=== PATIENT | female | born 2000 | race Caucasian/White ===

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

== ENCOUNTER 2019-04-21 17:14 | Emergency (ER) | payer MEDICAID ==
[2019-04-21 18:48] VITALS: BP 117/63
== END 2019-04-21 18:48 | disposition left against medical advice (07) ==
LOC: ER 17:14
DX: Z53.21 Procedure and treatment not carried out due to patient leaving prior to being seen by health care provider (principal)

== ENCOUNTER 2019-05-28 21:21 | Emergency (ER) | payer MEDICAID ==
[2019-05-28 21:28] VITALS: BP 119/63
--- NOTE | 2019-05-28 22:13 | ER Document Report ---
ED Medical Screen (RME) - General Chief Complaint: Rib Pain Stated Complaint: RIGHT RIB PAIN Time Seen by Provider: 05/28/19 22:06 Primary Care Provider: LUCILLE DANIEL MD [Primary Care Provider] - Follow up as needed Mode of Arrival: Medic Information source: Patient Notes: 18-year-old female relatively healthy presents emergency department via EMS with reports that approximately 2 hours ago she ate some pizza, went outside to have a cigarette when the right side of her chest and midsternal area of her chest started hurting. She reports her right arm started hurting. Denies trauma. Reports she felt nauseated. Denies fever vomiting. Denies history of trauma to the chest. Reports she does smoke cigarettes, has vaped marijuana but none recently. Unsure of family history. Patient chest wall tender to touch. Right-sided rib tender to touch. Respiratory rate even unlabored. I have greeted and performed a rapid initial assessment of this patient. A comprehensive ED assessment and evaluation of the patient, analysis of test results and completion of the medical decision making process will be conducted by additional ED providers. TRAVEL OUTSIDE OF THE [place] IN LAST 30 DAYS: No - Related Data Allergies/Adverse Reactions: No Known Allergies Allergy (Verified 04/21/19 18:48) Past Medical History - Past Medical History Cardiac Medical History: Reports: Hx Hypertension - 1st baby - GHTN Denies: Hx Coronary Artery Disease, Hx Heart Attack Pulmonary Medical History: Denies: Hx Asthma, Hx Bronchitis, Hx COPD, Hx Pneumonia Neurological Medical History: Denies: Hx Cerebrovascular Accident, Hx Seizures Renal/ Medical History: Reports: Hx Ovarian Cysts - Cysts on ovaries after first . Denies: Hx Kidney Stones, Hx Peritoneal Dialysis, Hx Pelvic Inflammatory Disease Malignancy Medical History: Denies: Hx Breast Cancer, Hx Cervical Cancer, Hx Ovarian Cancer GI Medical History: Reports: Hx Gastroesophageal Reflux Disease Musculoskeltal Medical History: Denies Hx Arthritis Past Surgical History: Reports: Hx Orthopedic Surgery - right leg - Immunizations Immunizations up to date: Yes Hx Diphtheria, Pertussis, Tetanus Vaccination: Yes Physical Exam - Vital signs Vitals: Temp Pulse Resp BP Pulse Ox 99.4 F 92 H 22 119/63 98 05/28/19 21:27 05/28/19 21:27 05/28/19 21:27 05/28/19 21:27 05/28/19 21:27 Course - Vital Signs Vital signs: Temp Pulse Resp BP Pulse Ox 99.4 F 92 H 22 119/63 98 05/28/19 21:27 05/28/19 21:27 05/28/19 21:27 05/28/19 21:27 05/28/19 21:27 Doctor's Discharge - Discharge Referrals: LUCILLE DANIEL MD [Primary Care Provider] - Follow up as needed
--- NOTE | 2019-05-28 22:16 | ER Document Report ---
HPI - HPI Patient complains to provider of: chest pain, rib pain Time Seen by Provider: 05/28/19 22:06 Onset: Just prior to arrival Onset/Duration: Sudden Quality of pain: Achy Context: 18-year-old female relatively healthy presents emergency department via EMS with reports that approximately 2 hours ago she ate some pizza, went outside to have a cigarette when the right side of her chest and midsternal area of her chest started hurting. She reports her right arm started hurting. Denies trauma. Reports she felt nauseated. Denies fever vomiting. Denies history of trauma to the chest. Reports she does smoke cigarettes, has vaped marijuana but none recently. Unsure of family history. Patient chest wall tender to touch. Right-sided rib tender to touch. Respiratory rate even unlabored. Associated Symptoms: Nausea Exacerbated by: Denies Relieved by: Denies Similar symptoms previously: No Recently seen / treated by doctor: No - REPRODUCTIVE Reproductive: DENIES: : Past Medical History - General Information source: Patient - Social History Smoking Status: Current Every Day Smoker Cigarette use (# per day): Yes Frequency of alcohol use: None Drug Abuse: Marijuana Family History: DM - grandmother, Malignancy - breast cancer Patient has suicidal ideation: No Patient has homicidal ideation: No - Past Medical History Cardiac Medical History: Reports: Hx Hypertension - 1st baby - GHTN Denies: Hx Coronary Artery Disease, Hx Heart Attack Pulmonary Medical History: Denies: Hx Asthma, Hx Bronchitis, Hx COPD, Hx Pneumonia Neurological Medical History: Denies: Hx Cerebrovascular Accident, Hx Seizures Renal/ Medical History: Reports: Hx Ovarian Cysts - Cysts on ovaries after first . Denies: Hx Kidney Stones, Hx Peritoneal Dialysis, Hx Pelvic Inflammatory Disease Malignancy Medical History: Denies: Hx Breast Cancer, Hx Cervical Cancer, Hx Ovarian Cancer GI Medical History: Reports: Hx Gastroesophageal Reflux Disease Musculoskeletal Medical History: Denies Hx Arthritis Past Surgical History: Reports: Hx Cholecystectomy, Hx Orthopedic Surgery - right leg - Immunizations Immunizations up to date: Yes Hx Diphtheria, Pertussis, Tetanus Vaccination: Yes Vertical Provider Document - CONSTITUTIONAL Agree With Documented VS: Yes Exam Limitations: No Limitations General Appearance: WD/WN, No Apparent Distress - INFECTION CONTROL TRAVEL OUTSIDE OF THE [place] IN LAST 30 DAYS: No - HEENT HEENT: Atraumatic, Normocephalic. negative: Conjuctival Injection - NECK Neck: Normal Inspection, Supple. negative: Lymphadenopathy-Left, Lymphadenopathy-Right - RESPIRATORY Respiratory: Breath Sounds Normal, No Respiratory Distress, Other - chest wall midsternum ttp, no erythema, no swelling, no warmth, respiratory rate even unlabored, right lateral ribs tender to palpate - CARDIOVASCULAR Cardiovascular: Regular Rate, Regular Rhythm - GI/ABDOMEN Gastrointestinal: Abdomen Soft, Abdomen Non-Tender - MUSCULOSKELETAL/EXTREMETIES Musculoskeletal/Extremeties: JULIANNE WILSON - NEURO Level of Consciousness: Awake, Alert, Appropriate Motor/Sensory: No Motor Deficit - DERM Integumentary: Warm, Dry Course - Re-evaluation Re-evalutation: 05/28/19 23:47 Ribs w/Chest X-Ray 05/28/19 22:10 IMPRESSION: 1. No right rib fracture identified.. 05/28/19 23:55 X-ray negative for acute fracture. EKG sinus rhythm no ST elevation or T wave inversion. I went to discuss x-ray, EKG and discharge instructions with patient but she was not in the room. - Vital Signs Vital signs: Temp Pulse Resp BP Pulse Ox 99.4 F 92 H 22 119/63 98 05/28/19 21:27 05/28/19 21:27 05/28/19 21:27 05/28/19 21:27 05/28/19 21:27 - Diagnostic Test Radiology reviewed: Image reviewed, Reports reviewed - EKG Interpretation by Nd EKG shows normal: Sinus rhythm Rate: Normal Additional EKG results interpreted by me: 05/28/19 23:[address] elevation no T wave inversion Discharge - Discharge Clinical Impression: Chest wall pain, Rib pain on right side Condition: Stable Disposition: HOME, SELF-CARE Instructions: Chest Wall Pain ([facility]), Chest Pain of Unclear Cause ([facility]) Additional Instructions: *You have been evaluated for chest and rib pain *Your rib x-ray was negative for acute injury *Cough and deep breathe at least once an hour *Take ibuprofen as indicated *Follow-up with your primary care provider for recheck within 1 week *Return to emergency department for worsening symptoms concerns difficulty breathing Referrals: LUCILLE DANIEL MD [ACTIVE STAFF] - Follow up as needed
--- NOTE | 2019-05-28 23:19 | RADIOLOGY REPORT (SQ) ---
EXAM DESCRIPTION: XR RIBS UNILATERAL WITH CHEST COMPLETED DATE/TME: 05/28/2019 22:10 CLINICAL HISTORY: rib pain, cp COMPARISON: None. FINDINGS: Single frontal view of the chest and 2 views of the right ribs. Cardiomediastinal silhouette: Normal size and contour. Lungs: No consolidation, pneumothorax, or pleural effusion. Upper abdomen: Prior cholecystectomy. Bones: No acute osseous abnormality. IMPRESSION: 1. No right rib fracture identified..
--- NOTE | 2019-05-29 13:35 | EKG REPORT ---
SEVERITY:- BORDERLINE ECG - SINUS RHYTHM BORDERLINE T ABNORMALITIES, ANTERIOR LEADS : Confirmed by: Leodan Marquez MD 29-May-2019 13:34:09
== END 2019-05-29 00:42 | disposition home or self-care (01) ==
LOC: ER 21:21
DX: R07.81 Pleurodynia (principal); R07.89 Other chest pain; M79.602 Pain in left arm; R11.0 Nausea; F12.10 Cannabis abuse, uncomplicated; F17.210 Nicotine dependence, cigarettes, uncomplicated
CPT/HCPCS: 93005; 93010; 99284

== ENCOUNTER 2019-07-29 19:01 | Emergency (ER) | payer MEDICAID ==
[2019-07-29] MEDS ORDERED: ONDANSETRON HCL INJ/PF 4 MG/2 ML SDV IV ONE (20:07)
[2019-07-29] MEDS ORDERED: METOCLOPRAMIDE HCL ORAL SOLN 10 MG/10 ML UDCUP PO ONE (20:08)
[2019-07-29] MEDS ORDERED: MAG HYDROX/AL HYDROX/SIMETH SUSP 30 ML UDCUP PO ONE (20:08)
[2019-07-29] MEDS ORDERED: LIDOCAINE 2% VISCOUS SOLN 15 ML UDCUP PO ONE (20:08)
[2019-07-29 20:20] LABS: ABSOLUTE BASOPHILS # (AUTO) 0.1 10^3/uL (0.0-0.2); ABSOLUTE EOSINOPHILS # (AUTO) 0.4 10^3/uL (0.0-0.6); ABSOLUTE LYMPHOCYTES (AUTO) 3.7 10^3/uL (0.5-4.7); ABSOLUTE MONOCYTES (AUTO) 0.7 10^3/uL (0.1-1.4); ABSOLUTE NEUT (AUTO) 11.6 10^3/uL (1.7-8.2); BASOPHILS % (AUTO) 0.4 % (0-2); EOSINOPHILS % (AUTO) 2.4 % (0-6); HEMATOCRIT 44.7 % (36.0-47.0); HEMOGLOBIN 15.3 g/dL (12.0-15.5); LYMPHOCYTES % (AUTO) 22.3 % (13-45); MEAN CORPUSCULAR HEMOGLOBIN 30.2 pg (27.0-33.4); MEAN CORPUSCULAR HGB CONC 34.3 g/dL (32.0-36.0); MEAN CORPUSCULAR VOLUME 88 fl (80-97); MONOCYTES % (AUTO) 4.5 % (3-13); PLATELET COUNT 219 10^3/uL (150-450); RED BLOOD COUNT 5.08 10^6/uL (3.72-5.28); RED CELL DISTRIBUTION WIDTH 13.4 % (11.5-14.0); SEGMENTED NEUTROPHILS % (AUTO) 70.4 % (42-78); TOTAL CELLS COUNTED % (AUTO) 100 %; WHITE BLOOD COUNT 16.5 10^3/uL (4.0-10.5)
[2019-07-29 20:47] LABS: ALBUMIN 3.9 g/dL (3.7-5.6); ALKALINE PHOSPHATASE 63 U/L (50-135); ASPARTATE AMINO TRANSFERASE 21 U/L (5-30); BILIRUBIN,TOTAL 0.4 mg/dL (0.2-1.3); BLOOD UREA NITROGEN 9 mg/dL (7-20); CALCIUM 9.1 mg/dL (8.4-10.2); CHLORIDE 106 mmol/L (98-107); GLUCOSE 98 mg/dL (75-110); POTASSIUM 4.1 mmol/L (3.6-5.0); TOTAL PROTEIN 6.3 g/dL (6.3-8.2)
[2019-07-29 20:52] LABS: CARBON DIOXIDE 26 mmol/L (22-30)
[2019-07-29 20:53] LABS: ANION GAP 6 (5-19)
--- NOTE | 2019-07-29 21:04 | ER Document Report ---
ED GI/ - General Chief Complaint: Abdominal Pain Stated Complaint: ABDOMINAL PAIN Time Seen by Provider: 07/29/19 19:51 Mode of Arrival: Ambulatory Information source: Patient Notes: This 18-year-old female presents to the emergency department with a 2-day history of abdominal pain with vomiting. Patient states that she donated plasma over the past 2 days. Last evening she developed vomiting episodes x2 with burning epigastric pain, she awoke again at 3 AM with second episode which las emily approximately 30 minutes. She had taken Tylenol without relief. She also tried Excedrin. Today she was doing well until 4 PM when she ate dinner and approximately 30 minutes later began having sharp abdominal pain and vomiting x2. She continues to be nauseated and complains of epigastric abdominal pain which she rates 6/10. She denies diarrhea constipation or change of appetite. She is status post cholecystectomy approximately 1 year ago. TRAVEL OUTSIDE OF THE [place] IN LAST 30 DAYS: No - Related Data Allergies/Adverse Reactions: No Known Allergies Allergy (Verified 04/21/19 18:48) Past Medical History - Social History Smoking Status: Current Every Day Smoker Chew tobacco use (# tins/day): No Frequency of alcohol use: Occasional Drug Abuse: None Family History: DM - grandmother, Malignancy - breast cancer Patient has suicidal ideation: No Patient has homicidal ideation: No - Past Medical History Cardiac Medical History: Reports: Hx Hypertension - 1st baby - GHTN Denies: Hx Coronary Artery Disease, Hx Heart Attack Pulmonary Medical History: Denies: Hx Asthma, Hx Bronchitis, Hx COPD, Hx Pneumonia Neurological Medical History: Denies: Hx Cerebrovascular Accident, Hx Seizures Renal/ Medical History: Reports: Hx Ovarian Cysts - Cysts on ovaries after first . Denies: Hx Kidney Stones, Hx Peritoneal Dialysis, Hx Pelvic Inflammatory Disease Malignancy Medical History: Denies: Hx Breast Cancer, Hx Cervical Cancer, Hx Ovarian Cancer GI Medical History: Reports: Hx Gastroesophageal Reflux Disease Musculoskeletal Medical History: Denies Hx Arthritis Past Surgical History: Reports: Hx Cholecystectomy, Hx Orthopedic Surgery - right leg - Immunizations Immunizations up to date: Yes Hx Diphtheria, Pertussis, Tetanus Vaccination: Yes Review of Systems - Review of Systems Notes: Constitutional: Negative for fever. HENT: Negative for sore throat. Eyes: Negative for visual changes. Cardiovascular: Negative for chest pain. Respiratory: Negative for shortness of breath. Gastrointestinal: + Abdominal pain, + nausea and vomiting, no diarrhea. Genitourinary: Negative for dysuria. Musculoskeletal: Negative for back pain. Skin: Negative for rash. Neurological: Negative for headaches, weakness or numbness. 10 point ROS negative except as marked above and in HPI. Physical Exam - Vital signs Vitals: Temp Pulse Resp Pulse Ox 98.3 F 123 H 18 97 07/29/19 19:06 07/29/19 19:06 07/29/19 19:06 07/29/19 19:06 - Notes Notes: PHYSICAL EXAMINATION: Physical Exam: General: Well-nourished well-developed 18-year-old female in no acute distress HEENT: NC/AT, pupils equal round and reactive to light, MM moist,nares clear, oropharynx clear, airway patent Neck: supple, no adenopathy, no masses. Good range of motion Lungs: clear, no wheezing, no rales no rhonchi CVS: Regular rate and rhythm no murmur gallop or rub Abdomen: Soft, active, + tenderness gastric area, no guarding, no rebound, no masses, no hepatosplenomegaly Ext: No edema, clubbing or cyanosis. Neuro: Alert and responsive, moving all 4 extremities on command, cranial nerves intact, no focal findings Skin: Intact no open lesions, no rash PSYCH: Normal mood, normal affect. Course - Re-evaluation Re-evalutation: 07/29/19 21:07 Patient received Zofran IV and a GI cocktail and states that her symptoms had resolved. Symptoms were compatible with acid reflux and nausea vomiting. She is given a prescription for Zofran, omeprazole, and encouraged to use a bland di et for first 24 hours while the medication is started. She can follow-up with her primary care doctor as needed and the patient acknowledges understanding of this plan and is agreeable. - Vital Signs Vital signs: Temp Pulse Resp BP Pulse Ox 98.3 F 121 H 18 106/87 H 97 07/29/19 19:06 07/29/19 19:10 07/29/19 19:06 07/29/19 19:10 07/29/19 19:06 - Laboratory Result Diagrams: 07/29/19 19:42 07/29/19 19:42 Laboratory results interpreted by me: 07/29/19 19:42 WBC 16.5 H Absolute Neuts (auto) 11.6 H I have reviewed laboratory data and used this information for the treatment decisions regarding the patient. Discharge - Discharge Clinical Impression: Epigastric pain Acid reflux disease Qualifiers: Esophagitis presence: with esophagitis Qualified Code(s): K21.0 - Gastro- esophageal reflux disease with esophagitis Nausea and vomiting Qualifiers: Vomiting type: unspecified Vomiting Intractability: unspecified Qualified Code(s): R11.2 - Nausea with vomiting, unspecified Condition: Good Disposition: HOME, SELF-CARE Instructions: Abdominal Pain ([facility]), Antinausea Medication ([facility]), Vomiting ([facility]) Additional Instructions: You are diagnosed with acid reflux disease, nausea vomiting in the emergency department tonight. Treated with Zofran and a GI cocktail with some improvement. It was suggested that you begin Zofran for nausea every 4-6 hours, you may also begin a daily dose of omeprazole 40 mg daily for acid suppression. Please use a bland diet avoiding fried foods, greasy foods, spicy foods, meats for the first 24 hours. You may eat light diet with soup, crackers, toast, applesauce for the first day. You may advance the diet as tolerated. HOME CARE INSTRUCTIONS & INFORMATION: Thank you for choosing us for your medical needs. We hope you're satisfied with the care you received. After you leave, you must properly care for your problem and, at the same time, observe its progress. Any condition can change. Some illnesses can change rapidly over hours or days. If your condition worsens, return to the Emergency Department or see your physician promptly. ABOUT YOUR X-RAYS AND EKG'S: If you had an EKG or X-rays taken, they have been read by the Emergency Physician. The X-rays and EKG's will also be read by a Radiologist or Window Maker within 24 hours. If discrepancies are noted, you will be notified by telephone. Please be certain the ED has a correct telephone number & address where you can be reached. Also, realize that some fractures or abnormalities do not show up on initial X-rays. If your symptoms continue, see your physician. ABOUT YOUR LABORATORY TEST: If you had laboratory tests, the results have been reviewed by the Emergency Physician. Some test results (for example cultures) may not be available for several days. You will be contacted if any test result shows you need additional treatment. Please be certain the ED has a correct telephone number and address where you can be reached. ABOUT YOUR MEDICATIONS: You will receive instructions on how to take your medicine on the prescription label you receive. Additional information may be provided by the Pharmacy. If you have questions afterwards, call the ED for clarification or further instructions. Some prescribed medications may cause drowsiness. Do not perform tasks such as driving a car or operating machinery without consulting your Pharmacist. If you feel you need a refill of pain medication, your condition will need re-evaluation. Please do not call for a refill of any medication. ABOUT YOUR SIGNATURE: Signature of this document acknowledges to followin. Understanding that you received emergency treatment and that you may be released before al medical problems are known or treated. Please be certain the ED has a correct phone number & address where you can be reached. 2. Acknowledgement that you will arrange for follow-up care as recommended. 3. Authorization for the Emergency Physician to provide information to your follow-up Physician in order to maximize your care. AT ANY TIME, IF YOUR SYMPTOMS CHANGE SIGNIFICANTLY OR WORSEN OR YOU DEVELOP NEW SYMPTOMS, RETURN TO THE EMERGENCY DEPARTMENT IMMEDIATELY FOR RE-EVALUATION. OUR GOAL IS TO PROVIDE EXCELLENT MEDICAL CARE! WE HOPE THAT WE HAVE MET YOUR EXPECTATIONS DURING YOUR EMERGENCY DEPARTMENT VISIT AND THAT YOU FEEL YOU HAVE RECEIVED EXCELLENT CARE! Prescriptions: Omeprazole 40 mg PO DAILY #30 capsule. Ondansetron [Zofran Odt 4 mg Tablet] 1 - 2 tab PO Q4H PRN #12 tab.rapdis PRN Reason: For Nausea/Vomiting
[2019-07-29 21:24] VITALS: BP 110/77
== END 2019-07-29 21:22 | disposition home or self-care (01) ==
LOC: ER 19:01
DX: K21.0 Gastro-esophageal reflux disease with esophagitis (principal); R11.2 Nausea with vomiting, unspecified; R10.13 Epigastric pain; F17.200 Nicotine dependence, unspecified, uncomplicated; Z90.49 Acquired absence of other specified parts of digestive tract
CPT/HCPCS: 99284; 96374; 36415; 83690; 85025; 80053; J3490 ×3; J2405

== ENCOUNTER 2019-12-29 21:19 | Emergency (ER) | payer MEDICAID ==
[2019-12-29 21:40] VITALS: BP 115/74
--- NOTE | 2019-12-29 21:50 | ER Document Report ---
ED Medical Screen (RME) - General Chief Complaint: Urinary Problem Stated Complaint: BACK AND RIB PAIN AND BLOOD IN URINE Time Seen by Provider: 12/29/19 21:38 Mode of Arrival: Ambulatory Information source: Patient Notes: 19-year-old female presents to ED for complaint of not feeling herself and tired no appetite fatigue with abdominal pain and back pain. She states she has been nauseated but no vomiting. She states she saw a log large glob of blood in the toilet after she urinated today. She states she went to [facility] and they did a test and it was negative. She states they started on Macrobid because of her symptoms. She states she has had 11 faint positive test at home. She states her last menstrual period was about 4 years ago. She states she is been off control for about a year but has not had any periods. She states she has had multiple ovarian cyst. She has had 2 C- sections a cholecystectomy and a surgery to her right lower leg for cyst. She states she does smoke a pack a day every couple days she drinks for beer and that she usually while she is cooking. She states she does not use any illicit drugs. She is alert oriented respirations regular nonlabored speaking in full sentences. We will get blood urine and a transvaginal ultrasound to find out why she is having the abdominal pain. I have greeted and performed a rapid initial assessment of this patient. A comprehensive ED assessment and evaluation of the patient, analysis of test results and completion of medical decision making process will be conducted by an additional ED providers. TRAVEL OUTSIDE OF THE [place] IN LAST 30 DAYS: No - Related Data Allergies/Adverse Reactions: No Known Allergies Allergy (Verified 04/21/19 18:48) Past Medical History - Social History Chew tobacco use (# tins/day): No Frequency of alcohol use: Occasional Drug Abuse: None - Past Medical History Cardiac Medical History: Reports: Hx Hypertension - 1st baby - GHTN Denies: Hx Coronary Artery Disease, Hx Heart Attack Pulmonary Medical History: Denies: Hx Asthma, Hx Bronchitis, Hx COPD, Hx Pneumonia Neurological Medical History: Denies: Hx Cerebrovascular Accident, Hx Seizures Renal/ Medical History: Reports: Hx Ovarian Cysts - Cysts on ovaries after first . Denies: Hx Kidney Stones, Hx Peritoneal Dialysis, Hx Pelvic Inflammatory Disease Malignancy Medical History: Denies: Hx Breast Cancer, Hx Cervical Cancer, Hx Ovarian Cancer GI Medical History: Reports: Hx Gastroesophageal Reflux Disease Musculoskeltal Medical History: Denies Hx Arthritis Past Surgical History: Reports: Hx Cholecystectomy, Hx Orthopedic Surgery - right leg - Immunizations Immunizations up to date: Yes Hx Diphtheria, Pertussis, Tetanus Vaccination: Yes Physical Exam - Vital signs Vitals: Temp Pulse Resp BP Pulse Ox 98.2 F 86 14 115/74 99 12/29/19 21:39 12/29/19 21:39 12/29/19 21:39 12/29/19 21:39 12/29/19 21:39 Course - Vital Signs Vital signs: Temp Pulse Resp BP Pulse Ox 98.2 F 86 14 115/74 99 12/29/19 21:42 12/29/19 21:39 12/29/19 21:39 12/29/19 21:39 12/29/19 21:39
[2019-12-29 22:20] LABS: ABSOLUTE EOSINOPHILS # (AUTO) 0.2 10^3/uL (0.0-0.6); ABSOLUTE LYMPHOCYTES (AUTO) 2.3 10^3/uL (0.5-4.7); ABSOLUTE MONOCYTES (AUTO) 0.6 10^3/uL (0.1-1.4); ABSOLUTE NEUT (AUTO) 5.8 10^3/uL (1.7-8.2); BASOPHILS % (AUTO) 0.3 % (0-2); EOSINOPHILS % (AUTO) 1.9 % (0-6); HEMATOCRIT 39.7 % (36.0-47.0); HEMOGLOBIN 13.6 g/dL (12.0-15.5); LYMPHOCYTES % (AUTO) 25.6 % (13-45); MEAN CORPUSCULAR HEMOGLOBIN 30.5 pg (27.0-33.4); MEAN CORPUSCULAR HGB CONC 34.3 g/dL (32.0-36.0); MEAN CORPUSCULAR VOLUME 89 fl (80-97); MONOCYTES % (AUTO) 7.2 % (3-13); PLATELET COUNT 173 10^3/uL (150-450); RED BLOOD COUNT 4.46 10^6/uL (3.72-5.28); RED CELL DISTRIBUTION WIDTH 12.9 % (11.5-14.0); TOTAL CELLS COUNTED % (AUTO) 100 %; WHITE BLOOD COUNT 8.9 10^3/uL (4.0-10.5)
[2019-12-29 22:27] LABS: APPEARANCE,URINE CLEAR; BILIRUBIN,URINE NEGATIVE (NEGATIVE); COLOR,URINE YELLOW; GLUCOSE, URINE NEGATIVE (NEGATIVE); KETONES,URINE NEGATIVE (NEGATIVE); LEUKOCYTE ESTERASE,URINE NEGATIVE (NEGATIVE); NITRITE,URINE NEGATIVE (NEGATIVE); PROTEIN,URINE NEGATIVE (NEGATIVE); URINE SPECIFIC GRAVITY 1.012
[2019-12-29 22:33] LABS: ALBUMIN 4.5 g/dL (3.5-5.0); ALKALINE PHOSPHATASE 70 U/L (38-126); ANION GAP 8 (5-19); ASPARTATE AMINO TRANSFERASE 18 U/L (14-36); BILIRUBIN,DIRECT 0.2 mg/dL (0.0-0.4); BILIRUBIN,TOTAL 0.4 mg/dL (0.2-1.3); BLOOD UREA NITROGEN 8 mg/dL (7-20); CALCIUM 9.4 mg/dL (8.4-10.2); CARBON DIOXIDE 28 mmol/L (22-30); CHLORIDE 101 mmol/L (98-107); GLUCOSE 84 mg/dL (75-110); POTASSIUM 4.1 mmol/L (3.6-5.0); TOTAL PROTEIN 7.3 g/dL (6.3-8.2)
--- NOTE | 2019-12-29 23:25 | RADIOLOGY REPORT (SQ) ---
EXAM DESCRIPTION: US PELVIS TRANSVAGINAL COMPLETED DATE/TME: 12/29/2019 21:50 CLINICAL HISTORY: 19 years, Female, Pelvic pain history ovarian cyst no cycle 4 years COMPARISON: Prior ultrasound dated 05/17/2018 TECHNIQUE: Axial 2-D grayscale images of the pelvis were acquired. Doppler was utilized. LIMITATIONS: None. FINDINGS: Uterus measures 7.2 x 4.6 x 3.6 cm in size. Cervix is closed, measuring 2.5 cm in length. Trace amount of free fluid is noted within the endometrial cavity. Endometrial stripe thickness measures 5 mm. A few foci of hyperechogenicity are noted about the uterine myometrium with associated comet tail artifact, nonspecific though potentially related to tiny myometrial calcifications. Right ovary measures 3.6 x 2.3 x 2.7 cm in size. It contains multiple follicles and demonstrates normal low resistance arterial waveforms/venous flow. Left ovary measures 3.7 x 2.6 x 2.2 cm in size. It also contains several small follicles and demonstrates normal low resistance arterial waveforms/venous flow. No significant free fluid is identified within the imaged pelvis. IMPRESSION: No acute sonographic abnormality. Trace free fluid within the endometrial cavity, nonspecific. Suspect tiny myometrial calcifications. copyright 2010 [email or web address]- All Rights Reserved
[2019-12-29] MEDS ORDERED: MORPHINE SULFATE 10 MG/ML INJ IV ONE (23:43)
[2019-12-29] MEDS ORDERED: ONDANSETRON HCL INJ/PF 4 MG/2 ML SDV IV ONE (23:44)
--- NOTE | 2019-12-29 23:44 | ER Document Report ---
ED GI/ - General Chief Complaint: Abdominal Pain Stated Complaint: BACK AND RIB PAIN AND BLOOD IN URINE Time Seen by Provider: 12/29/19 21:38 Primary Care Provider: MARY BUTLER NP [Primary Care Provider] - Follow up as needed Mode of Arrival: Ambulatory Information source: Patient Notes: 19-year-old female with no previous medical problems presents to the emergency room complaining of abdominal and back pain for the past week. Describes it as aching and cramping. Also complains of nausea without vomiting. States she passed a large blood clot earlier today. States she was seen at her primary care office earlier today with a negative test. Patient states she has had multiple faint positive tests at home. Was treated for UTI by her PCP earlier today. States no additional testing was done. States she is been taking ibuprofen, along with Tylenol without relief of pain. States has been able to tolerate p.o. fluids without difficulty. Currently denies any vaginal discharge or vaginal bleeding. She is a 2, para 2. TRAVEL OUTSIDE OF THE [place] IN LAST 30 DAYS: No - Related Data Allergies/Adverse Reactions: No Known Allergies Allergy (Verified 12/29/19 22:56) Past Medical History - General Information source: Patient - Social History Smoking Status: Current Every Day Smoker Chew tobacco use (# tins/day): No Frequency of alcohol use: Occasional Drug Abuse: None Family History: DM - grandmother, Malignancy - breast cancer Patient has homicidal ideation: No - Past Medical History Cardiac Medical History: Reports: Hx Hypertension - 1st baby - GHTN Denies: Hx Coronary Artery Disease, Hx Heart Attack Pulmonary Medical History: Denies: Hx Asthma, Hx Bronchitis, Hx COPD, Hx Pneumonia Neurological Medical History: Denies: Hx Cerebrovascular Accident, Hx Seizures Renal/ Medical History: Reports: Hx Ovarian Cysts - Cysts on ovaries after first . Denies: Hx Kidney Stones, Hx Peritoneal Dialysis, Hx Pelvic Inflammatory Disease Malignancy Medical History: Denies: Hx Breast Cancer, Hx Cervical Cancer, Hx Ovarian Cancer GI Medical History: Reports: Hx Gastroesophageal Reflux Disease Musculoskeletal Medical History: Denies Hx Arthritis Past Surgical History: Reports: Hx Cholecystectomy, Hx Orthopedic Surgery - right leg - Immunizations Immunizations up to date: Yes Hx Diphtheria, Pertussis, Tetanus Vaccination: Yes Review of Systems - Review of Systems Constitutional: No symptoms reported EENT: No symptoms reported Cardiovascular: No symptoms reported Respiratory: No symptoms reported Gastrointestinal: Abdominal pain, Nausea. denies: Vomiting Genitourinary: No symptoms reported Female Genitourinary: No symptoms reported Musculoskeletal: Back pain Skin: No symptoms reported Neurological/Psychological: No symptoms reported -: Yes All other systems reviewed and negative Physical Exam - Vital signs Vitals: Temp Pulse Resp BP Pulse Ox 98.2 F 86 14 115/74 99 12/29/19 21:39 12/29/19 21:39 12/29/19 21:39 12/29/19 21:39 12/29/19 21:39 - Notes Notes: VITAL SIGNS: Within normal limits. GENERAL: Mild acute distress, non-toxic appearance. HEAD: Normal with no signs of head trauma. EYES: PERRLA, EOMI, conjunctiva normal, no discharge. EARS: Hearing grossly intact. NOSE: Normal. THROAT: Oropharynx is normal. NECK: Normal range of motion, no tenderness, supple, no lymphadenopathy, No adenopathy, no JVD. CHEST: Clear breath sounds bilaterally. No wheezes, rales, or rhonchi. CARDIAC: Regular rate and rhythm. S1 and S2, without murmurs, gallops, or rubs. VASCULAR: No Edema. Peripheral pulses normal and equal in all extremities. ABDOMEN: Normal and soft with generalized tenderness on palpation, no masses or pulsatile masses. No organomegaly. Positive bowel sounds x4. Positive for right-sided CVA tenderness negative for left sided CVA tenderness. GASTROINTESTINAL: Bowel sounds normal GENITOURINARY: Normal, No tenderness LYMPATHTIC: No lymphadenopathy noted. MUSCULOSKELETAL: Good range of motion of all major joints. Extremities without clubbing, cyanosis or edema. NEUROLOGICAL: Alert and oriented x 3. No focal sensory or strength deficits. Speech normal. Follows commands appropriately. PSYCHIATRIC: Normal Affect, judgement and mood. SKIN: Normal appearance with no rashes or lesions. Course - Re-evaluation Re-evalutation: 12/29/19 23:40 Reviewed lab and negative ultrasound results with patient. Patient continues to complain of generalized abdominal pain with nausea. Meds, CT abdomen and pelvis with IV contrast was ordered. Patient is agreeable to further testing. 12/30/19 00:00 Notified by nursing staff that patient has eloped. Did not notify anyone that she was leaving. Unable to locate patient. - Vital Signs Vital signs: Temp Pulse Resp BP Pulse Ox 98.2 F 86 14 115/74 99 12/29/19 21:42 12/29/19 21:39 12/29/19 21:39 12/29/19 21:39 12/29/19 21:39 - Laboratory Result Diagrams: 12/29/19 21:50 12/29/19 21:50 Laboratory results interpreted by me: 12/29/19 21:50 Urine Blood LARGE H Urine Urobilinogen 4.0 H - Diagnostic Test Radiology reviewed: Reports reviewed Discharge - Discharge Clinical Impression: Abdominal pain of unknown etiology Condition: Stable Disposition: ELOPED Instructions: Abdominal Pain ([facility]) Referrals: MARY BUTLER NP [Primary Care Provider] - Follow up as needed
== END 2019-12-29 23:45 | disposition left against medical advice (07) ==
LOC: ER 21:19
DX: R10.84 Generalized abdominal pain (principal); N39.0 Urinary tract infection, site not specified; R10.817 Generalized abdominal tenderness; M54.9 Dorsalgia, unspecified; R11.0 Nausea; F17.200 Nicotine dependence, unspecified, uncomplicated; Z87.42 Personal history of other diseases of the female genital tract; Z90.49 Acquired absence of other specified parts of digestive tract; Z53.20 Procedure and treatment not carried out because of patient's decision for unspecified reasons
CPT/HCPCS: 36415; 76830; 80053; 81001; 83690; 84702; 85025; 87086; 99281

== ENCOUNTER 2020-03-15 00:33 | Emergency (ER) | payer MEDICAID ==
[2020-03-15 00:46] VITALS: BP 124/62
--- NOTE | 2020-03-15 01:10 | ER Document Report ---
ED Medical Screen (RME) - General Chief Complaint: Vaginal Pain Stated Complaint: ABDOMINAL PAIN Time Seen by Provider: 03/15/20 01:05 Primary Care Provider: MARY BUTLER NP [Primary Care Provider] - Follow up as needed Notes: Patient presents to the ER for evaluation of vaginal pain radiating to the right and left lower quadrants and into the back that began suddenly during intercourse approximately 1 hour prior to arrival. She denies dysuria. She denies nausea or vomiting. She denies fever. The patient states she is in a monogamous relationship. Exam- CONSTITUTIONAL: Patient appears to be in pain. She is in mild distress. PULMONARY: Normal chest rise and fall, no respiratory distress or stridor CARDIOVASCULAR: Regular rate, distal extremities are warm and well perfused I have greeted and performed a rapid initial assessment of this patient. A comprehensive ED assessment and evaluation of the patient, analysis of test results and completion of the medical decision making process will be conducted by additional ED providers. Dictation of this chart was performed using voice recognition software; therefore, there may be some unintended grammatical errors. TRAVEL OUTSIDE OF THE [place] IN LAST 30 DAYS: No - Related Data Allergies/Adverse Reactions: No Known Allergies Allergy (Verified 12/29/19 22:56) Home Medications: fertility med, Past Medical History - Past Medical History Cardiac Medical History: Reports: Hx Hypertension - 1st baby - GHTN Denies: Hx Coronary Artery Disease, Hx Heart Attack Pulmonary Medical History: Denies: Hx Asthma, Hx Bronchitis, Hx COPD, Hx Pneumonia Neurological Medical History: Denies: Hx Cerebrovascular Accident, Hx Seizures Renal/ Medical History: Reports: Hx Ovarian Cysts - Cysts on ovaries after first . Denies: Hx Kidney Stones, Hx Peritoneal Dialysis, Hx Pelvic Inflammatory Disease Malignancy Medical History: Denies: Hx Breast Cancer, Hx Cervical Cancer, Hx Ovarian Cancer GI Medical History: Reports: Hx Gastroesophageal Reflux Disease Musculoskeltal Medical History: Denies Hx Arthritis Past Surgical History: Reports: Hx Cholecystectomy, Hx Orthopedic Surgery - right leg - Immunizations Immunizations up to date: Yes Hx Diphtheria, Pertussis, Tetanus Vaccination: Yes Physical Exam - Vital signs Vitals: Temp Pulse Resp BP Pulse Ox 98.4 F 107 H 16 124/62 98 03/15/20 00:43 03/15/20 00:43 03/15/20 00:43 03/15/20 00:43 03/15/20 00:43 Course - Vital Signs Vital signs: Temp Pulse Resp BP Pulse Ox 98.4 F 107 H 16 124/62 98 03/15/20 00:43 03/15/20 00:43 03/15/20 00:43 03/15/20 00:43 03/15/20 00:43 Doctor's Discharge - Discharge Referrals: MARY BUTLER [employer] [Primary Care Provider] - Follow up as needed
== END 2020-03-15 01:59 | disposition left against medical advice (07) ==
LOC: ER 00:33
DX: N94.10 Unspecified dyspareunia (principal); R10.2 Pelvic and perineal pain; Z79.899 Other long term (current) drug therapy; Z87.42 Personal history of other diseases of the female genital tract; Z90.49 Acquired absence of other specified parts of digestive tract; Z53.20 Procedure and treatment not carried out because of patient's decision for unspecified reasons
CPT/HCPCS: 99281